=== PATIENT | female | born 1945 | race Two or more races ===

== ENCOUNTER 2024-02-11 17:35 | Emergency (ER) | payer BC ==
[~2024-02-11] VITALS: Ht 154.9 cm; Wt 64.4 kg
[2024-02-11 18:07] LABS: BASOPHILS # (AUTO) 0.1 K/uL (0.0-0.2); BASOPHILS % (AUTO) 0.5 % (0.0-2.0); EOSINOPHILS # (AUTO) 0.5 K/uL (0.0-0.7); EOSINOPHILS % (AUTO) 4.5 % (0.0-6.0); HEMATOCRIT 33 % (33-45); HEMOGLOBIN 11.2 g/dL (11.5-14.8); LYMPHOCYTES # (AUTO) 4.3 K/uL (0.8-4.8); LYMPHOCYTES % (AUTO) 38.4 % (20.0-44.0); MEAN CORPUSCULAR HEMOGLOBIN 31 PG (26.0-33.0); MEAN CORPUSCULAR HGB CONC 34 g/dl (31.0-36.0); MEAN CORPUSCULAR VOLUME 92 fL (82-100); MONOCYTES # (AUTO) 0.8 K/uL (0.1-1.30); MONOCYTES % (AUTO) 7.5 % (2.0-12.0); NEUTROPHILS # (AUTO) 5.5 K/uL (1.8-8.9); NEUTROPHILS % (AUTO) 49.1 % (43.0-81.0); PLATELET COUNT (AUTO) 220 K/uL (150-450); RED BLOOD CELL COUNT(AUTO) 3.59 MIL/uL (4.0-5.2); RED CELL DISTRIBUTION WIDTH 13.3 % (11.5-15.0); WHITE BLOOD COUNT (AUTO) 11.1 K/uL (4.3-11.0)
[2024-02-11 18:27] LABS: CALCIUM, SERUM 9.4 mg/dL (8.5-10.1); CARBON DIOXIDE 28 mmol/L (21-32); CHLORIDE 100 mmol/L (98-107); CREATININE 0.9 mg/dL (0.6-1.3); GLUCOSE 92 mg/dL (74-106); POTASSIUM 3.4 mmol/L (3.5-5.1); SODIUM SERUM 134 mmol/L (136-145); UREA NITROGEN, BLOOD 18 mg/dL (7-18)
[2024-02-11 18:41] LABS: NT-PRO BNP 261 pg/mL (0-125)
[2024-02-13 15:06] VITALS: BP 152/63; TEMP 98.7; O2SAT 100
== END 2024-02-11 19:23 | disposition home or self-care (01) ==
LOC: ER 17:44
DX: I10 Essential (primary) hypertension (principal); E11.9 Type 2 diabetes mellitus without complications; Z88.5 Allergy status to narcotic agent
CPT/HCPCS: 36415; 71045-TC; 80048-TC; 83880; 84484-TC; 85025-TC

== ENCOUNTER 2025-03-19 10:36 | Emergency (ER) | payer BC ==
[~2025-03-19] VITALS: Ht 162.6 cm; Wt 66.2 kg
[2025-03-19] MEDS ORDERED: BENZONATATE 100 MG CAPSULE PO ONE (11:36)
[2025-03-19] MEDS ORDERED: PSEUDOEPHEDRINE HCL 30 MG TABLET ONE (11:36)
[2025-03-19] MEDS: BENZONATATE 100 MG CAPSULE PO PRN (11:40)
[2025-03-19] MEDS: PSEUDOEPHEDRINE HCL 30 MG TABLET PO ONE (11:40)
[2025-03-19] MEDS ORDERED: ALBU18HF2 INH (12:15)
[2025-03-19] MEDS ORDERED: BENZ-13 PO (12:15)
[2025-03-19 12:39] VITALS: BP 131/53; TEMP 98; O2SAT 97
== END 2025-03-19 12:40 | disposition home or self-care (01) ==
LOC: ER 10:41
DX: U07.1 COVID-19 (principal); R05.9 Cough, unspecified; R09.81 Nasal congestion; E11.9 Type 2 diabetes mellitus without complications; I10 Essential (primary) hypertension; Z88.8 Allergy status to other drugs, medicaments and biological substances
CPT/HCPCS: 71045-TC